=== PATIENT | male | born 1995 | race Caucasian/White ===

== ENCOUNTER 2022-10-24 02:00 | Inpatient (IN) | payer SELFPAY ==
[2022-10-24] MEDS ORDERED: Rocuronium Bromide 10 MG/ML (10ML VIAL) ONE (02:11)
[2022-10-24] MEDS ORDERED: Propofol 1,000 MG/100 ML VIAL IV ONE (02:20)
[2022-10-24 02:21] LABS: #Basophils 0.1 thou/uL (0.0-0.2); #Eosinphils 0.1 thou/uL (0.0-0.7); #Monocytes 0.8 thou/uL (0.11-0.59); #Neutrophils 13.6 thou/uL (1.40-6.50); %Basophils 0.3 % (0.0-1.0); %Eosinophils 0.4 % (0.0-10.0); %Monocytes 4.1 % (0.0-10.0); %Neutrophils 71.9 % (42.0-75.0); Hemoglobin 14.3 g/dL (14.0-18.0); Mean Corpuscular HGB CONC 33.3 g/dL (32.0-36.0); Mean Corpuscular Hemoglobin 30.9 pg (27.0-31.0); Mean Corpuscular Volume 92.9 fl (78.0-98.0); Mean Platelet Volume 10.7 fL (7.4-10.4); Platelet Count 203 10x3/uL (130-400); RBC Distribution Width 11.9 % (11.5-14.5); Red Blood Cell (RBC) Count 4.63 mill/uL (4.70-6.10); White Blood Cell (WBC) Count 18.9 10x3/uL (4.8-10.8)
[2022-10-24] MEDS ORDERED: Pantoprazole 40 MG VIAL ONE (02:29)
[2022-10-24 02:40] LABS: Actual Bicarbonate (HCO3a) 17.1 mEq/L (22-28); Analyzer IN Cardio ER; Base Excess (BEa) -8.4 mEq/L (-2.0 to +3.0); CO2 Tension 35.4 mmHg (35.0-45.0); Calcium, Ionized (arterial) 1.11 mmol/L (1.12-1.30); Carboxyhemoglobin (COHb) 0.3 gm% (0.0-3.0); Hematocrit-ABG 41 % (42.0-52.0); Hemoglobin (Hb) 13.9 g/dL (14.0-18.0); O2 Tension (PaO2), arterial 300.7 mmHg (80.0-100.0); pH, Arterial 7.302 (7.35-7.45)
[2022-10-24 02:44] LABS: INR-International Normal Ratio 1.1; PTT 26.7 sec (22.9-36.1); Prothrombin Time 14.2 sec (12.0-14.7)
[2022-10-24 02:46] LABS: ALT (SGPT) 704 U/L (8-55); AST (SGOT) 519 U/L (5-34); Albumin 4.3 g/dL (3.5-5.0); Alkaline Phosphatase 138 U/L (40-110); Anion Gap 19 mmol/L (10-20); BUN (Urea Nitrogen) 15 mg/dL (8.9-20.6); Bilirubin, Total 0.2 mg/dL (0.2-1.2); CK (CPK) 243 U/L (30-200); Calc. Creatinine Clearance 0 mL/min (70-130); Carbon Dioxide 18 mmol/L (22-29); Chloride 104 mmol/L (98-107); Estimated GFR 75; Glucose 149 mg/dL (70-105); Potassium 3.3 mmol/L (3.5-5.1); Protein, Total 7.3 g/dL (6.0-8.3); Sodium 138 mmol/L (136-145)
[2022-10-24 03:09] LABS: Bacteria/HPF None Seen HPF (None Seen); Bilirubin Negative (Negative); Blood, Urine 2+ (Negative); CAUTI Indications for Culture Alt mental st,lethar; Clarity Clear (Clear); Glucose, Urine (Dipstick) Normal (Negative); Ketone, Urine Negative (Negative); Leukocyte Negative Leu/uL (Negative); Nitrite Negative (Negative); Protein, Urine (Dipstick) 100 mg/dL (Neg-Trace); RBC/HPF 0-3 HPF (0-3); Specific Gravity, Urine 1.021 (1.002-1.036); Squamous Epithelial None Seen HPF (0-3); Urobilinogen Normal mg/dL (Less than 2); pH, Urine 5.5 (5.0-9.0)
[2022-10-24 03:14] LABS: Urine Culture Reflex No No
[2022-10-24 03:15] LABS: Acetaminophen Less than 10 mcg/mL (10.0-30.0); Alcohol 45.3 mg/dL (Less than 10); Salicylate Less than 8.0 mg/dL (15.0-30.0)
[2022-10-24 03:19] LABS: Amphetamine Not Detected (NotDetected); Barbiturates Screen Not Detected (NotDetected); Benzodiazepine Screen Not Detected (NotDetected); Cocaine Metabolite Screen Not Detected (NotDetected); Methadone Not Detected (NotDetected); Methamphetamine Not Detected (NotDetected); Opiate Screen Not Detected (NotDetected); Oxycodone Screen Not Detected (NotDetected); Phencyclidine (PCP) Not Detected (NotDetected); THC/Cannabinoid Screen Detected (NotDetected); Tricyclic Screen Not Detected (NotDetected)
[2022-10-24] MEDS ORDERED: Ondansetron PF 4 MG/2 ML Vial IVP PRN (03:36)
[2022-10-24] MEDS ORDERED: Acetaminophen 325 MG TAB PO PRN (03:36)
[2022-10-24] MEDS ORDERED: Electrolyte Replacement Protocol 1 EACH IVPB PRN (03:44)
[2022-10-24] MEDS ORDERED: Sodium Bicarb 50 MEQ/50 ML Abboject 8.4% SYRINGE IVP SCH (03:45)
[2022-10-24] MEDS ORDERED: VANCOMYCIN 2 GRAM/500 ML BAG 2 GM in Premix Bag 1 BAG IVPB SCH (03:45)
[2022-10-24] MEDS ORDERED: Sodium Bicarbonate 150 MEQ in Dextrose 5% in Water 1,000 ML IV SCH ×2 (03:45→04:00)
[2022-10-24] MEDS ORDERED: Ventilator Sedation Protocol 1 EACH FS SCH (03:45)
[2022-10-24] MEDS ORDERED: Cefepime 2 GM VIAL ONE (03:46)
[2022-10-24] MEDS ORDERED: DISCONTINUE PREVIOUS NARCOTIC PAIN MEDICATIONS AND BENZODIAZEPINES FS SCH (04:00)
[2022-10-24] MEDS ORDERED: Morphine 2 MG/ML VIAL SLOW IVP PRN (04:00)
[2022-10-24] MEDS ORDERED: Fentanyl BOLUS 250 ML IVPB PRN (04:00)
[2022-10-24] MEDS ORDERED: Fentanyl CADD 100 ML IV SCH (04:00)
[2022-10-24] MEDS ORDERED: Lorazepam 2 MG/ML VIAL SLOW IVP PRN (04:00)
[2022-10-24] MEDS ORDERED: Propofol 1,000 MG/100 ML VIAL IV PRN (04:00)
[2022-10-24] MEDS ORDERED: Propofol BOLUS 1,000 MG/100 ML VIAL IV PRN (04:00)
[2022-10-24] MEDS ORDERED: Potassium Chloride 20 MEQ in Premix Bag 1 BAG IVPB SCH ×2 (04:00→07:30)
[2022-10-24] MEDS ORDERED: Thiamine HCl 200 MG/2 ML VIAL SLOW IVP SCH (04:15)
[2022-10-24 04:30] LABS: Hemoglobin A1c 5.1 % (4.0-6.0)
[2022-10-24] MEDS ORDERED: Sodium Bicarb 50 MEQ/50 ML VIAL IVP SCH (05:00)
[2022-10-24 05:25] LABS: Troponin I 0.187 ng/mL (< 0.028)
[2022-10-24] MEDS ORDERED: Ipratropium/Albuterol 3 ML NEB NEB PRN (05:55)
[2022-10-24 06:00] LABS: Lactic Acid 1.9 mmol/L (0.5-2.2)
[2022-10-24 07:54] VITALS: BP 101/58
[2022-10-24] MEDS ORDERED: Magnesium 2 GM/50 ML(in water) 2 GM in Premix Bag 1 BAG IVPB SCH (08:00)
[2022-10-24] MEDS: Multivitamin W/ Minerals 1 TAB PER TUBE SCH (08:28)
[2022-10-24] MEDS: Folic Acid 1 MG TAB PER TUBE SCH (08:28)
[2022-10-24] MEDS: Thiamine 100 MG TAB PER TUBE SCH (08:29)
[2022-10-24] MEDS: Pantoprazole 40 MG VIAL IVP SCH (08:29)
[2022-10-24 09:56] LABS: Troponin I 0.295 ng/mL (< 0.028)
[2022-10-24 10:11] LABS: Amphetamine Not Detected (NotDetected); Barbiturates Screen Not Detected (NotDetected); Benzodiazepine Screen Detected (NotDetected); Cocaine Metabolite Screen Not Detected (NotDetected); Methadone Not Detected (NotDetected); Methamphetamine Not Detected (NotDetected); Opiate Screen Not Detected (NotDetected); Oxycodone Screen Not Detected (NotDetected); Phencyclidine (PCP) Not Detected (NotDetected); THC/Cannabinoid Screen Detected (NotDetected); Tricyclic Screen Not Detected (NotDetected)
[2022-10-24] MEDS ORDERED: Lorazepam 2 MG/ML VIAL SLOW IVP SCH (13:45)
[2022-10-24] MEDS ORDERED: Lactated Ringer's 1,000 ML IV SCH (16:45)
[2022-10-25 04:43] LABS: #Eosinphils 0.1 thou/uL (0.0-0.7); #Monocytes 0.5 thou/uL (0.11-0.59); #Neutrophils 6.2 thou/uL (1.40-6.50); %Basophils 0.2 % (0.0-1.0); %Eosinophils 1.3 % (0.0-10.0); %Lymphocytes 19.5 % (21.0-51.0); %Monocytes 6.4 % (0.0-10.0); %Neutrophils 72.5 % (42.0-75.0); Hemoglobin 12.6 g/dL (14.0-18.0); Mean Corpuscular HGB CONC 33.1 g/dL (32.0-36.0); Mean Corpuscular Volume 93.8 fl (78.0-98.0); Mean Platelet Volume 11.2 fL (7.4-10.4); Platelet Count 143 10x3/uL (130-400); RBC Distribution Width 11.9 % (11.5-14.5); Red Blood Cell (RBC) Count 4.06 mill/uL (4.70-6.10); White Blood Cell (WBC) Count 8.5 10x3/uL (4.8-10.8)
[2022-10-25 05:07] LABS: ALT (SGPT) 388 U/L (8-55); AST (SGOT) 148 U/L (5-34); Albumin 3.6 g/dL (3.5-5.0); Alkaline Phosphatase 85 U/L (40-110); Anion Gap 8 mmol/L (10-20); BUN (Urea Nitrogen) 6 mg/dL (8.9-20.6); Bilirubin, Total 0.7 mg/dL (0.2-1.2); Calc. Creatinine Clearance 186 mL/min (70-130); Calcium 9.4 mg/dL (7.8-10.44); Carbon Dioxide 33 mmol/L (22-29); Chloride 101 mmol/L (98-107); Estimated GFR 124; Globulin 2.3 g/dL (2.4-3.5); Glucose 90 mg/dL (70-105); Magnesium 1.8 mg/dL (1.6-2.6); Potassium 4.1 mmol/L (3.5-5.1); Protein, Total 5.9 g/dL (6.0-8.3); Sodium 138 mmol/L (136-145)
[2022-10-25] MEDS ORDERED: Magnesium 2 GM/50 ML(in water) 2 GM in Premix Bag 1 BAG IVPB SCH (08:00)
[2022-10-25] MEDS: Pantoprazole 40 MG VIAL IVP SCH (09:47)
[2022-10-25] MEDS: Multivitamin W/ Minerals 1 TAB PER TUBE SCH (09:48)
[2022-10-25] MEDS: Folic Acid 1 MG TAB PER TUBE SCH (09:48)
[2022-10-25] MEDS: Thiamine 100 MG TAB PER TUBE SCH (09:48)
[2022-10-25] MEDS ORDERED: DC Sedation Protocol FS ONE (11:56)
[2022-10-25] MEDS: Melatonin 3 MG TAB PO PRN ×2 (23:40→23:43)
[2022-10-26 03:59] LABS: #Basophils 0.1 thou/uL (0.0-0.2); #Eosinphils 0.2 thou/uL (0.0-0.7); #Monocytes 0.6 thou/uL (0.11-0.59); #Neutrophils 4.6 thou/uL (1.40-6.50); %Basophils 0.7 % (0.0-1.0); %Eosinophils 2.3 % (0.0-10.0); %Lymphocytes 28.8 % (21.0-51.0); %Monocytes 7.3 % (0.0-10.0); %Neutrophils 60.8 % (42.0-75.0); Hemoglobin 13.7 g/dL (14.0-18.0); Mean Corpuscular HGB CONC 33.3 g/dL (32.0-36.0); Mean Corpuscular Hemoglobin 30.7 pg (27.0-31.0); Mean Corpuscular Volume 92.2 fl (78.0-98.0); Mean Platelet Volume 10.9 fL (7.4-10.4); Platelet Count 171 10x3/uL (130-400); RBC Distribution Width 11.7 % (11.5-14.5); Red Blood Cell (RBC) Count 4.46 mill/uL (4.70-6.10); White Blood Cell (WBC) Count 7.5 10x3/uL (4.8-10.8)
[2022-10-26 04:26] LABS: ALT (SGPT) 280 U/L (8-55); AST (SGOT) 65 U/L (5-34); Alkaline Phosphatase 90 U/L (40-110); Anion Gap 13 mmol/L (10-20); BUN (Urea Nitrogen) 7 mg/dL (8.9-20.6); Bilirubin, Total 0.7 mg/dL (0.2-1.2); Calc. Creatinine Clearance 154 mL/min (70-130); Calcium 9.7 mg/dL (7.8-10.44); Carbon Dioxide 27 mmol/L (22-29); Chloride 102 mmol/L (98-107); Estimated GFR 105; Globulin 2.9 g/dL (2.4-3.5); Glucose 103 mg/dL (70-105); Magnesium 2.3 mg/dL (1.6-2.6); Protein, Total 6.9 g/dL (6.0-8.3); Sodium 138 mmol/L (136-145)
[2022-10-26] MEDS: Folic Acid 1 MG TAB PER TUBE SCH (10:57)
[2022-10-26] MEDS: Thiamine 100 MG TAB PER TUBE SCH (10:57)
[2022-10-26] MEDS: Multivitamin W/ Minerals 1 TAB PER TUBE SCH (10:58)
[2022-10-27 03:49] LABS: #Basophils 0.1 thou/uL (0.0-0.2); #Eosinphils 0.1 thou/uL (0.0-0.7); #Monocytes 0.5 thou/uL (0.11-0.59); #Neutrophils 7.6 thou/uL (1.40-6.50); %Basophils 0.5 % (0.0-1.0); %Eosinophils 0.8 % (0.0-10.0); %Lymphocytes 14.7 % (21.0-51.0); %Monocytes 5.4 % (0.0-10.0); %Neutrophils 78.4 % (42.0-75.0); Hemoglobin 14.1 g/dL (14.0-18.0); Mean Corpuscular Hemoglobin 30.5 pg (27.0-31.0); Mean Corpuscular Volume 89.8 fl (78.0-98.0); Mean Platelet Volume 10.7 fL (7.4-10.4); Platelet Count 189 10x3/uL (130-400); RBC Distribution Width 11.6 % (11.5-14.5); Red Blood Cell (RBC) Count 4.62 mill/uL (4.70-6.10); White Blood Cell (WBC) Count 9.7 10x3/uL (4.8-10.8)
[2022-10-27 04:16] LABS: ALT (SGPT) 206 U/L (8-55); AST (SGOT) 43 U/L (5-34); Albumin 4.2 g/dL (3.5-5.0); Alkaline Phosphatase 88 U/L (40-110); Anion Gap 14 mmol/L (10-20); BUN (Urea Nitrogen) 10 mg/dL (8.9-20.6); Bilirubin, Total 0.5 mg/dL (0.2-1.2); Calc. Creatinine Clearance 161 mL/min (70-130); Calcium 9.9 mg/dL (7.8-10.44); Carbon Dioxide 25 mmol/L (22-29); Chloride 103 mmol/L (98-107); Estimated GFR 112; Globulin 3.1 g/dL (2.4-3.5); Glucose 116 mg/dL (70-105); Magnesium 1.9 mg/dL (1.6-2.6); Potassium 4.1 mmol/L (3.5-5.1); Protein, Total 7.3 g/dL (6.0-8.3); Sodium 138 mmol/L (136-145)
[2022-10-27] MEDS ORDERED: Magnesium 2 GM/50 ML(in water) 2 GM in Premix Bag 1 BAG IVPB SCH (08:00)
[2022-10-27] MEDS: Thiamine 100 MG TAB PER TUBE SCH (08:38)
[2022-10-27] MEDS: Folic Acid 1 MG TAB PER TUBE SCH (08:38)
[2022-10-27] MEDS: Multivitamin W/ Minerals 1 TAB PER TUBE SCH (08:38)
[2022-10-27 12:02] VITALS: TEMP 98.8
== END 2022-10-27 12:59 | disposition home or self-care (01) | DRG 896 ==
LOC: ERS 02:00 → CCU 02:05 → IMCU/EMU 10-25 14:37
PROVIDERS: ADMIT Internal Medicine; ATTEND Family Medicine
PROC: 0DH67UZ Insertion of Feeding Device into Stomach, Via Natural or Artificial Opening (ICD-10-PCS; principal; 2022-10-24)
PROC: 0BH17EZ Insertion of Endotracheal Airway into Trachea, Via Natural or Artificial Opening (ICD-10-PCS; 2022-10-24)
PROC: 5A1935Z Respiratory Ventilation, Less than 24 Consecutive Hours (ICD-10-PCS; 2022-10-24)
DX: F19.129 Other psychoactive substance abuse with intoxication, unspecified (principal); G92.8 Other toxic encephalopathy; I46.9 Cardiac arrest, cause unspecified; J96.01 Acute respiratory failure with hypoxia; K72.00 Acute and subacute hepatic failure without coma; N17.9 Acute kidney failure, unspecified; E87.20 Acidosis, unspecified; F10.129 Alcohol abuse with intoxication, unspecified; D72.829 Elevated white blood cell count, unspecified; R74.8 Abnormal levels of other serum enzymes; E87.6 Hypokalemia; R74.01 Elevation of levels of liver transaminase levels; F12.10 Cannabis abuse, uncomplicated
CPT/HCPCS: 31500; 36415; 36416; 51702; 70450; 71045; 80053; 80306; 80307; 81001; 82140; 82805; 83036; 83605; 83735; 84443; 84484; 85025; 85610; 85730; 87040; 87086; 93005; 93306; 94002; 96365; 96366; 96375; 99292; C9113; J0692; J2060; J2704; J3010; J3370; J3411; J3475; J3480; J3490; J7070; J7120